=== PATIENT | female | born 1945 | race Caucasian/White ===

== ENCOUNTER 2017-02-13 17:21 | Emergency (ER) | payer MEDICARE, BC ==
[2017-02-13] MEDS ORDERED: NORMAL SALINE 1,000 ML IV ONE (17:43)
--- OUTSIDE RECORDS SUMMARY | 2017-02-13 17:45 | XMS REPORT | Continuity of Care Document ---
:1945 Author Organization [facility] ([facility]) [place] [address] Phone [phone] Care Team Providers Name Role Phone Unavailable Primary Care Provider Unavailable Source Comments This disclosure is being made pursuant to the Care Everywhere program, applicable federal and state laws, and may not contain all informaitonavailable regarding this patient.[facility] ([facility]) Active Allergies and Adverse Reactions Not on File Current Medications Not on file Active Problems Not on file Social History Tobacco Use Types Packs/Day Years Used Date Never Assessed Plan of Care Health Maintenance Due Date Last Done Comments HCV Screening 1945 Hepatitis B Vaccine (1 of 3 - Primary Series) 1945 Tdap Vaccine 1956 Lipid Disorder Screening 1963 Td Vaccine 1963 Mammogram 1985 Colonoscopy 1995 Zoster Vaccine 2005 Osteoporosis Screening (DXA Bone Density) 2010 Pneumococcal Vaccine (1 of 2 - PCV13) 2010 Influenza Vaccine: Seasonal (#1) 04/01/2016 Results from Last 3 Months Not on file
[2017-02-13 18:01] LABS: Hematocrit 39.5 % (37.0-47.0); Hemoglobin 13.3 gm/dL (12.5-16.0); Mean Cell Volume 92.3 fl (78-100); Mean Corpuscular Hemoglobin 31.1 pg (27-31); Mean Corpuscular Hgb Conc 33.7 g/dl (32-36); Mean Platelet Volume 9.5 fl (6.0-9.5); Neutrophil # 7.8 K/mm3 (1.3-6.0); Neutrophil % 74.4 % (42-75.0); Platelet Count 187 K/mm3 (150-450); Red Blood Count 4.28 M/mm3 (4.2-5.4); Red Cell Distribution Width 13.3 % (11.5-14.0); White Blood Count 10.5 K/mm3 (4.0-10.5)
[2017-02-13 18:18] LABS: ALT 37 U/L (19-67); AST 29 U/L (0-48); Albumin * 3.9 gm/dl (3.4-5.0); Alkaline Phosphatase * 76 U/L (50-170); Anion Gap 12.2 mmol/L (6.8-13.8); BUN/Creatinine Ratio 24.3 (9.0-21.6); Bilirubin, Total 0.6 mg/dL (0.0-1.1); Blood Urea Nitrogen 17 mg/dL (3-23); Ca. Corrected For Albumin 10.1 mg/dL (8.4-10.2); Calcium * 10.3 mg/dL (7.9-10.9); Carbon Dioxide 27.7 mmol/L (24-32.6); Chloride 103 mmol/L (97-106); Potassium 3.9 mmol/L (3.4-4.6); Sodium 139 mmol/L (132-142); Total Protein 7.6 gm/dL (6.2-8.2)
[2017-02-13 18:19] LABS: Troponin I Less than 0.017 ng/ml (0.00-0.10)
[2017-02-13 18:23] LABS: Glucose * 147 mg/dL (70-110)
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
[2017-02-13 20:03] LABS: Urine Bilirubin Negative (NEGATIVE); Urine Blood Negative /ul (NEGATIVE); Urine Ketone Negative (NEGATIVE); Urine Nitrite Negative (NEGATIVE); Urine Protein Negative (NEGATIVE); Urine Specific Gravity >=1.030 SP.GR. (1.005-1.010); Urine Urobilinogen Normal (NORMAL); Urine pH 5.5 pH (5.0-7.0)
[2017-02-13 20:13] LABS: Urine Appearance Clear; Urine Color Yellow
[2017-02-13 20:14] LABS: Urine Bacteria None Seen; Urine RBC None Seen /hpf (0-5); Urine WBC None Seen /hpf (0-5)
[2017-02-13 20:44] VITALS: BP 161/62
== END 2017-02-13 20:50 | disposition home or self-care (01) ==
LOC: ER 17:21
DX: R41.0 Disorientation, unspecified (principal); W19.XXXA Unspecified fall, initial encounter

== ENCOUNTER 2017-05-19 11:15 | Emergency (ER) | payer MEDICARE, BC ==
[2017-05-19 12:55] LABS: Urine Bilirubin Negative (NEGATIVE); Urine Blood Negative /ul (NEGATIVE); Urine Ketone Negative (NEGATIVE); Urine Nitrite Negative (NEGATIVE); Urine Protein Negative (NEGATIVE); Urine Specific Gravity >=1.030 SP.GR. (1.005-1.010); Urine Urobilinogen Normal (NORMAL); Urine pH 5.5 pH (5.0-7.0)
[2017-05-19 13:01] LABS: Urine Appearance Clear; Urine Bacteria None Seen; Urine Color Yellow; Urine RBC None Seen /hpf (0-5); Urine WBC None Seen /hpf (0-5)
[2017-05-19 13:15] LABS: Hematocrit 38.4 % (37.0-47.0); Mean Cell Volume 93.7 fl (78-100); Mean Corpuscular Hemoglobin 31.7 pg (27-31); Mean Corpuscular Hgb Conc 33.9 g/dl (32-36); Mean Platelet Volume 9.6 fl (6.0-9.5); Neutrophil # 5.2 K/mm3 (1.3-6.0); Neutrophil % 68.9 % (42-75.0); Platelet Count 155 K/mm3 (150-450); Red Cell Distribution Width 13.3 % (11.5-14.0); White Blood Count 7.5 K/mm3 (4.0-10.5)
[2017-05-19 13:24] LABS: Albumin * 3.9 gm/dl (3.4-5.0); Anion Gap 14.7 mmol/L (6.8-13.8); BUN/Creatinine Ratio 28.1 (9.0-21.6); Bilirubin, Total 0.6 mg/dL (0.0-1.1); Ca. Corrected For Albumin 8.7 mg/dL (8.4-10.2); Calcium * 8.9 mg/dL (7.9-10.9); Carbon Dioxide 26.2 mmol/L (24-32.6); Magnesium 1.8 mg/dL (1.2-2.8); Potassium 3.9 mmol/L (3.4-4.6); Total Protein 7.5 gm/dL (6.2-8.2)
--- NOTE | 2017-05-19 14:10 | ERNOTE ---
Medical Problem HPI - General Chief Complaint: General Assessment Time Seen by Provider: 05/19/17 12:31 Source: patient, family Exam Limitations: no limitations - Immun/Allergies/Home Medications Immunizations: IMMUNIZATION HX Immunizations Up to Date Yes History of Influenza Vaccine No Hx Pneumococcal Vaccination No Allergies/Adverse Reactions: Allergies No Known Allergies Allergy (Verified 05/19/17 11:48) Home Medications: HOME MEDICATIONS Diclofenac Sodium [Voltaren] 50 mg PO BID 10/07/15 [Last Taken Unknown] glipiZIDE [Glipizide] 10 mg PO BID 10/07/15 [Last Taken Unknown] Cephalexin 500 mg PO TID #21 tab 05/13/16 [Last Taken Unknown] Triamcinolone Acetonide [Kenalog 0.1%] 15 gm TP TID #1 tube 05/13/16 [Last Taken Unknown] - History of Present History Narrative: The family notices that the patient has been becoming progressively more forgetful over the last 4 months and they became concerned that possibly something medically was wrong. Patient has no complaint of her self and appears to be in no distress. Timing: constant Severity: mild Review of Systems - Review of Systems Constitutional: Present: See HPI EYE: Present: no symptoms reported ENT: Present: no symptoms reported Respiratory: Present: no symptoms reported Cardiology: Present: no symptoms reported Gastrointestinal/Abdominal: Present: no symptoms reported Genitourinary: Present: no symptoms reported Musculoskeletal: Present: no symptoms reported Skin: Present: no symptoms reported Neurological: Present: other - forgetful Endocrine: Present: no symptoms reported Hematologic/Lymphatic: Present: no symptoms reported Psych: Present: no symptoms reported - Patient's Past Medical History Patient History - Medical: Diabetes Type 2, Depression Patient History - Cardiac/Respiratory: No pertinent hx Patient History - Cancer: No Hx of Cancer Patient History - Surgical Procedures: Colonoscopy, T & A Patient History - Other: None - Social History Living Situations: home Abuse History: No History of abuse Psych History: Hx of Depression Alcohol Use: none Drug Use: none - Immunizations Immunizations Up to Date: Yes Hx Pneumococcal Vaccination: No History of Influenza Vaccine: No Physical Exam - Physical Exam General Appearance: Present: wd/wn, alert, no apparent distress Eye Exam: Normal inspection: bilateral, PERRL: bilateral Ears, Nose, Throat: Present: normal ENT inspection, H, normal pharynx Neck: Present: normal inspection, nontender Respiratory: Present: no respiratory distress, normal breath sounds, no accessory muscle use, chest nontender, lungs clear Cardiovascular/Chest: Present: regular rate, rhythm, no murmur, normal peripheral pulses Gastrointestinal/Abdominal: Present: normal bowel sounds, nontender, nondistended, soft, no organomegaly Rectal Exam: Present: deferred Back Exam: Present: normal inspection, normal range of motion Extremity Exam: Present: normal inspection, non-tender, no edema, normal range of motion Neurological Exam: Present: alert, oriented, normal mood/affect, disoriented to situation Skin Exam: Present: normal color, warm/dry Lymphatic Exam: Present: no adenopathy ED Progress - Results and Orders Patient's Lab Results:: I have reviewed the patient's lab results. - Vital Signs Patient's Vital Signs:: I have reviewed the patient's vital signs. Vital Signs: Vital Signs 05/19/17 11:43 Temperature 36.5 C Pulse Rate 84 Respiratory 12 Rate Blood Pressure 167/92 O2 Sat by Pulse 95 Oximetry - CT/Ultrasound CT/Ultrasound Narrative: CT of the head was reviewed - Progress/Reassessment Chief Complaint: General Assessment Plan - Plan Plan: The family would have a better handle on her baseline while we were here in the emergency department. Patient was able to accurately identify the year, her name, where she was always unclear on the name of the president. Could certainly be dealing with some early presenile dementia or perhaps even Alzheimer's. Family was counseled to take the patient back to the family doctor follow up arranged for an outpatient neuropsych exam to assess any definitive presence of dementia. Departure - Departure Clinical Impression: Pre-senile dementia Qualifiers: Dementia behavioral disturbance: without behavioral disturbance Qualified Code( s): F03.90 - Unspecified dementia without behavioral disturbance Disposition: Home self-care Condition: Good Instructions: Confusion, Mild Neurocognitive Disorder Additional Instructions: Discuss with your family doctor about obtaining outpatient testing to assess any presence of dementia Referrals: Lucas Sheppard MD [Primary Care Provider] -
[2017-05-19 14:13] VITALS: BP 158/89
== END 2017-05-19 14:13 | disposition home or self-care (01) ==
LOC: ER 11:15
DX: F03.90 Unspecified dementia, unspecified severity, without behavioral disturbance, psychotic disturbance, mood disturbance, and anxiety (principal)